=== PATIENT | male | born 1970 | race Asian ===

== ENCOUNTER 2016-10-24 17:18 | Emergency (ER) | payer OTHER, BC ==
[~2016-10-24] VITALS: Ht 160 cm; Wt 61.7 kg
[~2016-10-24 17:18] MED LIST: BACTRIM1 TAB PO; LIPI10 PO; RENVELA800 M1 PO; ZOF4 PO
[2016-10-24 20:36] LABS: BASOPHIL % 0.3 % (0-2); PLATELET COUNT 244 x10^3mcL (130-400)
[2016-10-24 20:39] LABS: RED CELL DISTRIBUTION WIDTH 15.8 % (11.5-14.5)
[2016-10-24 20:46] LABS: ALBUMIN 3.2 g/dL (3.4-5.0); BILIRUBIN TOTAL 0.4 mg/dL (0.20-1.00); CALCIUM 9.3 mg/dL (8.5-10.1); CARBON DIOXIDE 29.3 mmol/L (21-32); TOTAL PROTEIN, SERUM 7.5 g/dL (6.4-8.2)
[2016-10-24 22:21] VITALS: BP 145/96
== END 2016-10-24 22:21 | disposition home or self-care (01) ==
LOC: ED 17:18
PROVIDERS: Emergency Medicine
DX: R10.13 Epigastric pain (principal); R11.0 Nausea; Z91.041 Radiographic dye allergy status
CPT/HCPCS: Q0092

== ENCOUNTER 2017-11-09 10:15 | Inpatient (IN) | payer OTHER, BC ==
[~2017-11-09] VITALS: Ht 160 cm; Wt 62.8 kg
[2017-11-09 10:20] VITALS: Ht 160 cm; Wt 62.8 kg
[2017-11-09 11:37] LABS: BASOPHIL % 0.5 % (0-2); PLATELET COUNT 292 x10^3mcL (130-400)
[2017-11-09 11:38] LABS: RED CELL DISTRIBUTION WIDTH 14.6 % (11.5-14.5)
[2017-11-09 11:55] LABS: ALBUMIN 4.1 g/dL (3.4-5.0); BILIRUBIN TOTAL 0.52 mg/dL (0.20-1.00); CALCIUM 10.5 mg/dL (8.5-10.1); CARBON DIOXIDE 32.2 mmol/L (21-32); POTASSIUM SERUM 4.8 mmol/L (3.5-5.1)
[2017-11-09 12:05] LABS: CREATININE SERUM 10.8 mg/dL (0.7-1.3); TOTAL PROTEIN, SERUM 9.3 g/dL (6.4-8.2)
[2017-11-09 13:26] VITALS: BP 150/90
[2017-11-09 15:01] LABS: MAGNESIUM 3.3 mg/dL (1.8-2.4); PHOSPHOROUS 5.5 mg/dL (2.5-4.9)
[2017-11-09 15:11] LABS: CHOLESTEROL/HDL RATIO 2.5
[2017-11-09 15:36] LABS: FREE T4 1.28 ng/dL (0.76-1.46)
[2017-11-09 15:41] LABS: FREE THYROXINE INDEX 5.1 ug/dL (1.4-4.5); T4(THYROXINE) 14.3 ug/dL (4.7-13.3)
[2017-11-09 16:30] VITALS: BP 124/86
[2017-11-09 19:48] VITALS: BP 124/86
[2017-11-09 21:12] VITALS: BP 123/83
[2017-11-10 05:41] VITALS: BP 126/82
[2017-11-10 06:37] LABS: CALCIUM 9.1 mg/dL (8.5-10.1); CARBON DIOXIDE 26.2 mmol/L (21-32); PHOSPHOROUS 6.2 mg/dL (2.5-4.9); POTASSIUM SERUM 4.7 mmol/L (3.5-5.1)
[2017-11-10 06:49] LABS: BASOPHIL % 0.8 % (0-2); PLATELET COUNT 283 x10^3mcL (130-400); RED CELL DISTRIBUTION WIDTH 14.4 % (11.5-14.5)
[2017-11-10 08:44] VITALS: BP 129/85
[2017-11-10 16:21] VITALS: BP 137/86
[2017-11-10 16:56] LABS: UA SPECIFIC GRAVITY 1.015 (1.005-1.035); microscopic required? YES; urine erythrocyte TRACE (NEGATIVE)
[2017-11-10 17:18] LABS: AMPHETAMINE QUAL UR NONE DETECTED (See below)
== END 2017-11-10 16:50 | disposition home or self-care (01) | DRG 438 ==
LOC: ED 10:15 → MU 12:24
PROVIDERS: Emergency Medicine; Internal Medicine
DX: K85.90 Acute pancreatitis without necrosis or infection, unspecified (principal); N18.6 End stage renal disease; N17.0 Acute kidney failure with tubular necrosis; I12.0 Hypertensive chronic kidney disease with stage 5 chronic kidney disease or end stage renal disease; E83.39 Other disorders of phosphorus metabolism; E83.41 Hypermagnesemia; E83.52 Hypercalcemia; Z99.2 Dependence on renal dialysis; Z68.23 Body mass index [BMI] 23.0-23.9, adult
CPT/HCPCS: 83880; 84439; J7030; Q0092; Q0162

== ENCOUNTER 2017-11-11 20:51 | Emergency (ER) | payer OTHER, BC ==
[2017-11-11 21:02] VITALS: Ht 160 cm
[2017-11-11 23:00] VITALS: BP 146/98
== END 2017-11-11 23:00 | disposition home or self-care (01) ==
LOC: ED 20:51
DX: K85.90 Acute pancreatitis without necrosis or infection, unspecified (principal); N18.6 End stage renal disease; Z88.8 Allergy status to other drugs, medicaments and biological substances; Z99.2 Dependence on renal dialysis
CPT/HCPCS: J2270; J2405; J7030; J7040

== ENCOUNTER 2018-02-07 02:38 | Inpatient (IN) | payer OTHER, BC ==
[~2018-02-07] VITALS: Ht 160 cm; Wt 61.7 kg
[2018-02-07 02:43] VITALS: Ht 160 cm; Wt 61.7 kg
[2018-02-07 03:45] LABS: BASOPHIL % 0.6 % (0-2); PLATELET COUNT 285 x10^3mcL (130-400); RED CELL DISTRIBUTION WIDTH 14.1 % (11.5-14.5)
[2018-02-07 03:54] LABS: BILIRUBIN TOTAL 0.34 mg/dL (0.20-1.00); CALCIUM 8.4 mg/dL (8.5-10.1); POTASSIUM SERUM 3.8 mmol/L (3.5-5.1); TOTAL PROTEIN, SERUM 7.5 g/dL (6.4-8.2)
[2018-02-07 04:01] LABS: ALBUMIN 3.1 g/dL (3.4-5.0)
[2018-02-07 04:12] LABS: CREATININE SERUM 14.2 mg/dL (0.7-1.3)
[2018-02-07] MEDS ORDERED: SENSIPAR30 M1 (05:14)
[2018-02-07] MEDS ORDERED: RENVELA800 M1 (05:14)
[2018-02-07 05:34] VITALS: BP 145/89
[2018-02-07 05:55] LABS: MAGNESIUM 3.4 mg/dL (1.8-2.4); PHOSPHOROUS 8.9 mg/dL (2.5-4.9)
[2018-02-07 06:02] LABS: CHOLESTEROL/HDL RATIO 2.8
[2018-02-07 10:00] LABS: microscopic required? YES; urine erythrocyte 1+ (NEGATIVE)
[2018-02-07 10:57] LABS: AMPHETAMINE QUAL UR NONE DETECTED (See below)
[2018-02-07 12:02] VITALS: BP 142/94
[2018-02-07 16:18] VITALS: BP 110/76
[2018-02-07 16:19] VITALS: BP 150/81
[2018-02-07 18:49] VITALS: BP 110/76
== END 2018-02-07 19:28 | disposition home or self-care (01) | DRG 438 ==
LOC: ED 02:38 → DU 04:58
PROVIDERS: Emergency Medicine; ADMIT Family Medicine
DX: K85.90 Acute pancreatitis without necrosis or infection, unspecified (principal); N18.6 End stage renal disease; N17.0 Acute kidney failure with tubular necrosis; E44.1 Mild protein-calorie malnutrition; E83.41 Hypermagnesemia; E83.39 Other disorders of phosphorus metabolism; E78.5 Hyperlipidemia, unspecified; Z99.2 Dependence on renal dialysis
CPT/HCPCS: 83880; C9113; J2405; J2765; J3010; J3490; J7030; Q0092

== ENCOUNTER 2018-05-28 20:07 | Inpatient (IN) | payer OTHER, BC ==
[~2018-05-28] VITALS: Ht 160 cm; Wt 63.2 kg
[~2018-05-28 20:07] MED LIST changes: +RENVELA800 M1; +SENSIPAR30 M1
[2018-05-28 20:35] VITALS: Ht 160 cm; Wt 63.2 kg
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
--- NOTE | 2018-05-28 22:13 | NUR ---
DR CHANEY BEDSIDE- EVALUATING PATIENT.
[2018-05-28 22:58] LABS: ALBUMIN 3.7 g/dL (3.4-5.0); BILIRUBIN TOTAL 0.5 mg/dL (0.20-1.00); CALCIUM 9.4 mg/dL (8.5-10.1)
[2018-05-28 23:02] LABS: BASOPHIL % 0.1 % (0-2); PLATELET COUNT 273 x10^3mcL (130-400); RED CELL DISTRIBUTION WIDTH 13.7 % (11.5-14.5); TOTAL PROTEIN, SERUM 8.6 g/dL (6.4-8.2)
[2018-05-28 23:04] LABS: CREATININE SERUM 11.3 mg/dL (0.7-1.3)
--- NOTE | 2018-05-28 23:29 | NUR ---
PATIENT LYING ON GURNEY- BREATHING EVEN AND UNLABORED. NO S/S OF DISTRESS NOTED.
[2018-05-28 23:44] LABS: UA SPECIFIC GRAVITY 1.015 (1.005-1.035); microscopic required? YES; urine erythrocyte 2+ (NEGATIVE)
--- NOTE | 2018-05-29 00:22 | NUR ---
PT MEDICATED PER ORDER. PT VERBALIZED UNDERSTANDING OF MEDICATION. SEE EMAR FOR DETAILS.
--- NOTE | 2018-05-29 01:16 | NUR ---
PATIENT RESTING ON GURNEY- STATES HE IS VERY TIRED AFTER RECIEVING PAIN MEDICATION. STATES HIS PAIN IS A LOT BETTER. WILL CONTINUE TO MONITOR. BREATHING E/U.
--- NOTE | 2018-05-29 01:59 | NUR ---
PATIENT ARRIVE TO THE UNIT VIA WHEELCHAIR FROM ED ACCOMPANIED BY ED NURSE. BELONGINGS AT BEDSIDE. CC OF EPIGASTRIC PAIN WITH N/V X2 DAYS. DX WITH PANCREATITIS. A/OX4. DENIES HEADACHE/DIZZINESS. BREATHING EVEN AND UNLABORED ON ROOM AIR. NO SOB OR DISTRESS NOTED. MED SURG PATIENT. DENIES CHEST PAIN/ PRESSURE. C/O 3/10 EPIGASTRIC AND RIGHT UPPER QUAD PAIN. TOLERABLE AT THIS TIME. ABD ROUND/SOFT. BS ACTIVE X4, NO DISTENTION NOTED. DENIES N/V AT THIS TIME. LUE AV SHUNT NOTED. BRUIT AND THRILL PRESENT. SITE CLEAN. PULSES PALPABLE, NO EDEMA NOTED. PATIENT IS ABLE TO VOID AND DENIES PAIN UPON URINATION. IV TO THE RAC, 20G. SALINE LOCK. PATENT AND INTACT. NO REDNESS OR SWELLING NOTED. EDUCATED PATIENT ON CLEAR LIQUID DIET. ORIENTED PATIENT TO THE ROOM AND CALL LIGHT. PATIENT MADE COMFORTABLE IN BED. COMFORT AND SAFETY MEASURES MAINTAINED. BED IS LOCKED AND IN THE LOWEST POSITION. SIDE RAILS UP X2. CALL LIGHT IS WITHIN REACH. INSTRUCTED PATIENT TO CALL FOR ASSISTANCE. WILL CONTINUE TO MONITOR.
[2018-05-29 02:21] LABS: FREE T4 1.32 ng/dL (0.76-1.46); FREE THYROXINE INDEX 4.7 ug/dL (1.4-4.5); T4(THYROXINE) 13.1 ug/dL (4.7-13.3)
[2018-05-29 02:22] VITALS: BP 139/85
[2018-05-29 02:28] LABS: CHOLESTEROL/HDL RATIO 3.1; MAGNESIUM 3.2 mg/dL (1.8-2.4); PHOSPHOROUS 8.3 mg/dL (2.5-4.9)
[2018-05-29 02:46] LABS: T3 TOTAL 0.95 ng/mL
--- NOTE | 2018-05-29 04:49 | NUR ---
PATIENT TRANSFER TO TELE. TELE#35 NSR. DENIES CHEST PAIN/PRESSURE. CALL LIGHT IS WITHIN REACH. WILL CONTINUE TO MONITOR.
--- NOTE | 2018-05-29 05:11 | NUR ---
PATIENT SLEPT IN INTERVAL THROUHGOUT THE NIGHT. NO ACUTE/SIGNIFICANT CAHNGES NOTED. BREATHING EVEN ON ROOM AIR. NO SOB OR DISTRESS NOTED. NO C/O PAIN THROUHGOUT THE NIGHT. DENIES CHEST PAIN, N/V. IV TO THE RAC. PATENT AND INTACT. NO REDNESS OR SWELLING NOTED. COMFORT AND SAFETY MEASURES MAINTAINED. CALL LIGHT IS WITHIN REACH. WILL ENDORSE CARE TO DAY SHIFT RN.
[2018-05-29 06:08] VITALS: BP 135/85
[2018-05-29 07:04] LABS: BASOPHIL % 0.5 % (0-2); PLATELET COUNT 251 x10^3mcL (130-400); RED CELL DISTRIBUTION WIDTH 13.6 % (11.5-14.5)
--- NOTE | 2018-05-29 07:20 | NUR ---
RECEIVED PT FROM WELT WHEELER. PT AWAKE, ALERT. A/OX4. PT ON ROOM AIR WITH NO RESP DISTRESS NOTED. LUNGS CTA. IV ACCESS RAC C/D/I INFUSING NS AT 80ML/HR. PERIPHERAL PULSES PALPABLE, NO EDEMA NOTED. PT DENIES PAIN AT THIS TIME. ACTIVE BOWEL SOUNDS NOTED. PT AMBULATORY. NO APPARENT ISSUES WITH ELIMINATION AT THIS TIME. SAFETY MEASURES IN PLACE, BED LOW AND LOCKED. CALL LIGHT WITHIN REACH.
[2018-05-29 07:22] LABS: CALCIUM 8.9 mg/dL (8.5-10.1); CARBON DIOXIDE 27.3 mmol/L (21-32); MAGNESIUM 3.3 mg/dL (1.8-2.4); PHOSPHOROUS 8.2 mg/dL (2.5-4.9); POTASSIUM SERUM 4.1 mmol/L (3.5-5.1)
[2018-05-29 07:23] LABS: CREATININE SERUM 11.7 mg/dL (0.7-1.3)
[2018-05-29 09:59] VITALS: BP 124/79
--- NOTE | 2018-05-29 11:14 | NUR ---
PT TAKEN BY WHEELCHAIT TO CT SCAN. ALERT AND ORIENTED. ABLE TO AMBULATE. SAFETY MAINTAINED.
--- NOTE | 2018-05-29 12:42 | NUR ---
DUE MEDS ADMINISTERED. (SEE EMAR). PT DENIES PAIN AT THIS TIME. NO DISCOMFORT NOTED. PT AWARE OF ORDER TO HAVE HEMODIALYSIS TODAY. SAFETY MEASURES MAINTAINED.
[2018-05-29 12:59] VITALS: BP 125/84
[2018-05-29 17:58] VITALS: BP 122/79
--- NOTE | 2018-05-29 18:10 | NUR ---
PT ON HEMODIALYSIS AT THIS TIME. NO ACUTE DISTRESS OR DISCOMFORT NOTED. ALL NEEDS TENDED TO THROUGHOUT SHIFT. WILL CONTINUE TO MONITOR AND ENDORSE CARE TO ALPINE PATROLLER. SAFETY MEASURES MAINTAINED.
--- NOTE | 2018-05-29 19:25 | NUR ---
RECEIVED PT IN BED WITH HD ONGOING.AAOX4.NO DISTRESS NOTED. NO C/O PAIN AT THIS TIME.AV SHUNT TO LUE.IV SITE PATENT AND INTACT.HD NURSE AT BEDSIDE.BED IN LOWEST POSITION,CALL LIGHT WITHIN REACH. WILL CONTINUE TO MONITOR.
[2018-05-29 21:03] VITALS: BP 110/59
[2018-05-30 06:05] VITALS: BP 124/85
[2018-05-30 07:07] LABS: CALCIUM 8.3 mg/dL (8.5-10.1); CARBON DIOXIDE 25.5 mmol/L (21-32); CREATININE SERUM 8.4 mg/dL (0.7-1.3); POTASSIUM SERUM 4.1 mmol/L (3.5-5.1)
--- NOTE | 2018-05-30 07:30 | NUR ---
RECEIVED PT FROM TALENT ADVISOR RN. Azul/GILBERTO. TELE#4. DENIES CHEST PAIN/PRESSURE. RESPIRATIONS EQUAL AND UNLABORED ON RA. DENIES SOB. PT DENIES ANY N/V AT THIS TIME. PT DENIES ANY ABDOMINAL PAIN AT THIS TIME. IV PATENT AND INFUSING RAC. NO REDNESS OR SWELLING NOTED. LUE AV SHUNT INTACT, BRUIT AND THRILL NOTED. WILL CONTINUE TO MONITOR. CALL LIGHT IN REACH. BED IN LOWEST POSITION.
--- NOTE | 2018-05-30 07:32 | NUR ---
CARE ENDORSED TO DAY NURSE MEDARDO.
--- NOTE | 2018-05-30 09:04 | NUR ---
PT SITTING UP IN BED WATCHING TV. NO ACUTE RESP DISTRESS NOTED ON RA. GIVEN PO MEDS. TOLERATED WELL. IV TO RAC PATENT AND INFUSING. NO REDNESS OR SWELLING NOTED. PT DENIES ANY N/V. PT DENIES ANY ABDOMINAL PAIN AT THIS TIME. WILL CONTINUE TO MONITOR. CALL LIGHT IN REACH. BED IN LOWEST POSITION.
[2018-05-30 09:16] LABS: BASOPHIL % 0.7 % (0-2); PLATELET COUNT 188 x10^3mcL (130-400); RED CELL DISTRIBUTION WIDTH 13.3 % (11.5-14.5)
[2018-05-30 09:56] VITALS: BP 110/74
--- NOTE | 2018-05-30 10:34 | NUR ---
RECEIVED ORDERS TO TRANSFER PT TO MED SURG. TELE #35 RETURNED TO AIR TOOL OPERATOR NELLY.
--- NOTE | 2018-05-30 12:15 | NUR ---
PT SITTING UP IN BED. NO ACUTE RESP DISTRESS NOTED ON RA. PT DENIES ANY PAIN AT THIS TIME. IV PATENT AND INFUSING TO RAC. NO REDNESS OR SWELLING NOTED. GIVEN PO MEDS. TOLERATED WELL. PT ASKING FOR FOOD. GIVEN JELLO. WILL CONTINUE TO MONITOR. CALL LIGHT IN REACH. BED IN LOWEST POSITION.
[2018-05-30 13:12] VITALS: BP 110/69
--- NOTE | 2018-05-30 13:53 | NUR ---
DIALYSIS NURSE AT BEDSIDE. PT RECEIVING HD.
--- NOTE | 2018-05-30 16:37 | NUR ---
PT SITTING UP IN BED. NO ACUTE RESP DISTRESS NOTED ON RA. HD FINISHED. PT HAD 2L OUT. VSS. PT DENIES ANY N/V OR ABDOMINAL PAIN AT THIS TIME. WILL CONTINUE TO MONITOR. CALL LIGHT IN REACH. BED IN LOWEST POSITION.
--- NOTE | 2018-05-30 17:11 | NUR ---
PT SITTING UP IN BED. NO ACUTE RESP DISTRESS NOTED ON RA. IV PATENT AND INFUSING TO RAC. NO REDNESS OR SWELLING NOTED. GIVEN PO MEDS. TOLERATED WELL. PT DENIES ANY N/V. PT DENIES ANY PAIN AT THIS TIME. WILL CONTINUE TO MONITOR. CALL LIGHT IN REACH. BED IN LOWEST POSITION.
[2018-05-30 17:47] VITALS: BP 95/62
--- NOTE | 2018-05-30 18:52 | NUR ---
PT SITTING UP IN BED WATCHING TV. MED SURG. NO ACUTE RESP DISTRESS NOTED ON RA. IV PATENT AND INFUSING TO RAC. NO REDNESS OR SWELLING NOTED. PT DENIES ANY ABDOMINAL PAIN AT THIS TIME. PT DENIES ANY N/V AT THIS TIME. WILL ENDORSE TO PATROL JUDGE RN. CALL LIGHT IN REACH. BED IN LOWEST POSITION.
--- NOTE | 2018-05-30 19:50 | NUR ---
PT SEEN, ASLEEP BUT EASILY AROUSABLE, ALERT AND ORIENTED, DENIES HEADACHE OR DIZZINESS, BREATHING EVEN AND UNLABORED, NO SOB, LUNG SOUNDS CLEAR, ON ROOM AIR WITH NO RESP DISTRESS NOTED, DENIES CHEST PAIN, IVF INFUSING WELL, PULSES PALPABLE, NO EDEMA NOTED, C/O OF N&V AT TIMES, FULL LIQUID DIET, AMBULATORY WITH STEADY GAIT, ABD SOFT WITH ACTIVE BS, NO BM AT THIS TIME, HD PT, ARINA WITH AV SHUNT WITH BRUIT AND THRILL, LAST HD 05/30 WITH 2 L OUT, NO DISTRESS NOTED, WILL KEEP TO MONITOR.
[2018-05-30 21:02] VITALS: BP 101/69
--- NOTE | 2018-05-31 05:28 | NUR ---
PT ASLEEP BUT EASILY AROUSABLE, SLEPT MOST OF NIGHT, NO C/O OF ABD PAIN OR N&V SINCE BEGINNING OF SHIFT, IVF INFUSING WELL, NO DISTRESS NOTED, WILL KEEP TO MONITOR.
[2018-05-31 06:04] VITALS: BP 128/88
[2018-05-31 06:22] LABS: BASOPHIL % 0.4 % (0-2); PLATELET COUNT 226 x10^3mcL (130-400); RED CELL DISTRIBUTION WIDTH 13.4 % (11.5-14.5)
[2018-05-31 06:36] LABS: CALCIUM 8.4 mg/dL (8.5-10.1); CARBON DIOXIDE 28.9 mmol/L (21-32); POTASSIUM SERUM 3.8 mmol/L (3.5-5.1)
--- NOTE | 2018-05-31 07:26 | NUR ---
BEDSIDE HANDOFF REPORT DONE WITH ARNIE-RN, ALL QUESTIONS ANSWERED AND CONCERNS ADDRESSED.
--- NOTE | 2018-05-31 07:30 | NUR ---
ALERT AND ORIENTED. BREATHING FREELY ON RA. DENIES ANY PAIN ABDOMINAL OR OTHERWISE. NO NAUSEA. NS INFUSING 75 CC HOUR. FULL LIQUID FOR PANCREATITIS. INDEPENDENT W ADL'S. CALL LIGHT WITHIN REACH.
[2018-05-31 07:53] LABS: CREATININE SERUM 6.4 mg/dL (0.7-1.3)
[2018-05-31 09:35] VITALS: BP 102/66
[2018-05-31 11:35] VITALS: BP 102/66
[2018-05-31] MEDS ORDERED: PAN PO (12:19)
--- NOTE | 2018-05-31 12:24 | NUR ---
DC'D TOHOME. IV DC'D INTACT. NO TELE. PRESCRIPTION GIVEN FOR PANCREASE. PT TO CALL PCP FOR F/U FAISAL AND DIALYSIS. ALL DC INSTRUCTIONS REVIEWED WITH AND SIGNED BY PT. WAITING FOR RIDE.
== END 2018-05-31 12:30 | disposition home or self-care (01) | DRG 438 ==
LOC: ED 20:07 → MU 05-29 00:24 → DU 05-29 00:24 → MU 05-29 02:17 → DU 05-29 05:08 → MU 05-30 10:26
PROVIDERS: Emergency Medicine; Internal Medicine; ADMIT Family Medicine
DX: K85.90 Acute pancreatitis without necrosis or infection, unspecified (principal); N18.6 End stage renal disease; N17.0 Acute kidney failure with tubular necrosis; M94.0 Chondrocostal junction syndrome [Tietze]; E83.41 Hypermagnesemia; E83.39 Other disorders of phosphorus metabolism; Z99.2 Dependence on renal dialysis; Z68.23 Body mass index [BMI] 23.0-23.9, adult
CPT/HCPCS: 83880; 84439; 85378; 87804; C9113; J2270; J7030; J7040; Q0092